=== PATIENT | male | born 1990 | race Caucasian/White ===

== ENCOUNTER 2020-05-15 19:12 | Emergency (ER) | payer BC ==
--- NOTE | 2020-05-15 21:39 | ER Document Report ---
ED General - General Chief Complaint: Anxiety Stated Complaint: ANXIETY Time Seen by Provider: 05/15/20 20:56 Mode of Arrival: Ambulatory - HPI Notes: 29-year-old male presents to ED for evaluation of increased anxiety. Patient reports that he has had several increasing life stressors over the last week. Patient reports that he has been unable to obtain a refill of his Lexapro from the nurse practitioner that he sees for management. States that he has been switched off his citalopram and started on Lexapro quite some time ago but this medication does not appear to be working. He experienced side effects from his citalopram which caused the switch. Notes that he has not been on this medication for the last 1 to 1-1/2 weeks and stop the medication abruptly due to a lack of refills. He reports that he has been asking the pharmacy to obtain a refill from his provider but has been unable to get this. He states he is called with similar effects. He also has been unable to schedule an appo intment. He notes he is also having difficulties obtaining follow-up with the counselor that he seeks. He notes that he and several close acquaintances see this counselor for follow-up and they do believe that her significant other due to Covid. He reports that she has been increasingly stressed and unable to see her patients recently. He also reports that he has substantial family stressors at this time. Patient notes that he generally mediates conflict within his family however feels increasingly unable to do this and assist with the underlying issues in his family currently. Patient reports that he was driving this evening and felt very overwhelmed by his current situation. He reports that he also has recently lost his job. He felt that he needed to speak with somebody and called the mobile crisis hotline. They recommended due to his lack of medication management and inability to speak to his regular counseling services that he present to an ER for further management. Patient states that he came here of his own volition. He notes that he does not have any plan to harm himself or anyone else. He just feels increasingly restless and unable to focus. He states that he is very forward thinking and has cats at home that he cares a great deal about. He also notes that his family, while stressful, is very important to him and he would like to help that moving forward. He reports that he has had suicidal thoughts in the past with no definitive plan. He states that most of this with side effects due to a medication he previously took and was a core reason as to why he was removed from that medication. Patient states that he has had no cold or cough symptoms. Endorses no headaches, visual disturbances, chest pain, or shortness of breath. Patient denies any abdominal discomfort, dysuria or hematuria. Denies any use of recreational substances. Denies any alcohol use today. - Related Data Home Medications: citalipram 40mg, lexapro 10mg, Past Medical History - General Information source: Patient - Social History Smoking Status: Never Smoker Cigarette use (# per day): No Frequency of alcohol use: None Drug Abuse: None Family History: None Patient has suicidal ideation: No Patient has homicidal ideation: No - Medical History Medical History: Negative Psychiatric Medical History: Reports: Hx Anxiety Review of Systems - Review of Systems Notes: Constitutional: Negative for fever. HENT: Negative for sore throat. Eyes: Negative for visual changes. Cardiovascular: Negative for chest pain. Respiratory: Negative for shortness of breath. Gastrointestinal: Negative for abdominal pain, vomiting or diarrhea. Genitourinary: Negative for dysuria. Musculoskeletal: Negative for back pain. Skin: Negative for rash. Neurological: Negative for headaches, weakness or numbness. 10 point ROS negative except as marked above and in HPI. Physical Exam - Vital signs Vitals: Temp Pulse Resp BP Pulse Ox 98.2 F 83 20 156/112 H 98 05/15/20 19:45 05/15/20 19:45 05/15/20 19:45 05/15/20 19:45 05/15/20 19:45 General: No acute distress. Alert and oriented x3. Skin: Intact without any jaundice, pallor, or erythema. Warm and dry. HEENT: Normocephalic, atraumatic. Pupils are equal round reactive to light and accommodation. Extraocular movements are intact. TMs without erythema or bulging. Canals are clear. Nares patent without any discharge. Teeth in good condition. Pharynx without erythema, edema, or exudates. No tonsillar enlargement. Uvula is midline. Airway is patent. Neck: Supple with no lymphadenopathy. Full range of motion. Heart: Regular rate and rhythm. S1,S2. No murmurs, rubs, or gallops. Lungs: Clear to ausculation bilaterally. No wheezes, rhonchi, rales. Equal chest expansion. No retractions. Abdomen: Soft, nontender to palpation, nondistended. Positive bowel sounds in all 4 quadrants. No hepatosplenomegaly. No masses. No CVA tenderness bilaterally. Neuro: GCS 15. Moving all extremities without discomfort. Psych: Mood and affect appropriate. No SI/HI Increased pacing, ambulating in room. Course - Re-evaluation Re-evalutation: 05/15/20 22:42 29-year-old male presents to ED for evaluation of increased anxiety. Patient reports that he has had some increased difficulties with losing his job, family complications, and difficulty seeing his counselor as well as his primary care physician for follow-up. Patient is awaiting intake with a psychiatrist later this week. On exam, patient has no medical complaints. Patient is anxious upon his arrival here. He does not take daily medications for management. He is currently out of his antidepressant. Patient endorses no SI or HI. Patient did come here voluntarily at the recommendation of mobile crisis whom he called due to his increased stress. I did speak with our crisis management team who recommended that patient could be medically cleared and kept overnight voluntarily to be evaluated by crisis services in the morning. I did confirm this with the overnight emergency medicine providers who recommend that we offer this option to the patient. Patient could also be started on short-term management for anxiolytics as well as restarted on his Lexapro until he follows up with outpatient psychiatry. I did offer both options to the patient. While patient was considering these options, patient's mother did call the ER repeatedly as she had arrived outside the department. Patient did not want anyone to know he was here, I did make him aware of the fact that his mother was outside. Patient did elect to leave in order to speak with his mother and discuss the family issues that he has ongoing. Patient had no concerns for me that required IVC at this time. I did not see a contraindication to his departing. I did encourage him to stay for further evaluation. He understands that he can return at any time should he feel the need. Patient was given a refill of his Lexapro. I did give him a short course of xanax. She was also provided outpatient referrals for further psychiatric services. He is encouraged to keep his outpatient intake appointment with psychiatry and return for any new or worsening symptoms. He verbalized his understanding of this plan and is in agreement. - Vital Signs Vital signs: Temp Pulse Resp BP Pulse Ox 98.3 F 67 14 133/90 H 100 05/15/20 22:08 05/15/20 22:08 05/15/20 22:08 05/15/20 22:08 05/15/20 22:08 - Laboratory Results Critical Laboratory Results Reviewed: No Critical Results - Radiology Results Critical Radiology Results Reviewed: No Critical Results Discharge - Discharge Clinical Impression: Anxiety Condition: Stable Disposition: HOME, SELF-CARE Instructions: Anxiety (OM) Prescriptions: Escitalopram Oxalate [Lexapro 10 mg Tablet] 10 mg PO QHS #30 tablet Escitalopram Oxalate [Lexapro 10 mg Tablet] 10 mg PO DAILY #10 tablet Alprazolam [Xanax 0.25 mg Tablet] 0.25 mg PO TID #9 tablet Alprazolam [Xanax 0.25 mg Tablet] 0.25 mg PO TID #9 tablet Alprazolam [Xanax 0.25 mg Tablet] 0.25 mg PO TID #9 tab Forms: Return to Work
[2020-05-15 22:09] VITALS: BP 133/90
== END 2020-05-15 22:09 | disposition home or self-care (01) ==
LOC: ER 19:12 → EEVIPCON 19:12 → ER 22:09
DX: F41.9 Anxiety disorder, unspecified (principal); Z56.0 Unemployment, unspecified
CPT/HCPCS: 99283